=== PATIENT | female | born 2000 | race Caucasian/White ===

== ENCOUNTER 2021-05-05 11:48 | Emergency (ER) | payer MEDICAID ==
[~2021-05-05] VITALS: Ht 172.7 cm; Wt 103.0 kg
[2021-05-05] MEDS ORDERED: ONDANSETRON HCL 4MG/2ML INJ IV STA (12:18)
[2021-05-05] MEDS ORDERED: MORPHINE SULFATE 4 MG/ML CPJ (NOT FOR IM USE) IV STA (12:18)
[2021-05-05 12:36] LABS: HEMATOCRIT. 37.8 % (36.0-48.0); HEMOGLOBIN. 12.9 g/dL (12.0-16.0); MEAN CORPUSCULAR HEMOGLOBIN 27.6 pg (28.0-32.0); MEAN PLATELET VOLUME 9.1 fl (7.4-10.4); PLATELET 323 x1000/uL (130-400); RED BLOOD CELL COUNT 4.66 mill/uL (4.2-5.4); RED CELL DISTRIBUTION WIDTH 15.3 % (11.6-14.6)
[2021-05-05 12:41] LABS: CLARITY URINE CLEAR (CLEAR); COLOR URINE YELLOW (YELLOW); KETONES URINE TRACE (NEGATIVE); LEUKOCYTE ESTERASE URINE TRACE (NEGATIVE); NITRITE URINE NEGATIVE (NEGATIVE); OCCULT BLOOD URINE NEGATIVE (NEGATIVE); PROTEIN URINE TRACE (NEGATIVE); SPECIFIC GRAVITY URINE 1.031 (1.005-1.030); UROBILINOGEN URINE 0.2 E.U./dL (0.2-1.0)
[2021-05-05 12:43] LABS: CHLORIDE 108 mEq/L (98-107)
[2021-05-05 12:51] LABS: HCG SCREEN NEGATIVE
[2021-05-05 13:10] LABS: PLATELET ESTIMATE NORMAL
[2021-05-05] MEDS ORDERED: PIPERACILLIN/TAZ 3.375G PREMIX 50 ML IV NR (13:45)
[2021-05-05] MEDS ORDERED: MORPHINE SULFATE 4 MG/ML CPJ (NOT FOR IM USE) IV ONE (13:45)
[2021-05-05] MEDS ORDERED: PIPERACILLIN/TAZOBACTAM 3.375GM/50ML PREMIX IV ONE (13:45)
[2021-05-05 16:59] VITALS: BP 119/73
== END 2021-05-05 17:34 | disposition left against medical advice (07) ==
LOC: ER 11:48 → ENRESERV 16:39 → CANRESERV 16:39 → ER 17:34 → CANBEDREQ 17:44
DX: K81.9 Cholecystitis, unspecified (principal)
CPT/HCPCS: 36415; 76705; 80053; 81003; 83690; 84703; 85025; 96365; 96375; 96376; 99285; J2270; J2405; J2543; Z7610